=== PATIENT | female | born 1960 | race African-American/Black ===

== ENCOUNTER 2016-12-22 05:04 | Day surgery (SDC) | payer BC ==
[~2016-12-22 05:04] MED LIST: ADVIL PO; ALEVE220 MG PO; KLOR-CON M2020 MEQ PO; LEXAPRO10 PO; MOBIC15 MG PO; NEUR100 PO; NORCO1 TA2 PO; NORV5 PO; PRAVACHOL40 MG PO; PRILOSEC40 MG PO; SOMATAB PO; TRAZ50 PO; ULTRAM50 PO; VERELANPM1 PO; VERELANPM2 PO
[2017-01-12] MEDS ORDERED: LINZESS 145 M145 MCG PO (10:46)
== END 2016-12-22 08:48 | disposition home or self-care (01) ==
LOC: SDC 05:04
PROVIDERS: Orthopaedic Surgery
PROC: B01BZZZ Fluoroscopy of Spinal Cord (ICD-10-PCS; 2016-12-22)
PROC: 3E0R3BZ Introduction of Anesthetic Agent into Spinal Canal, Percutaneous Approach (ICD-10-PCS; principal; 2016-12-22 07:45)
DX: M54.5 Low back pain (principal); M54.16 Radiculopathy, lumbar region; G43.909 Migraine, unspecified, not intractable, without status migrainosus; I10 Essential (primary) hypertension; M19.90 Unspecified osteoarthritis, unspecified site; F41.9 Anxiety disorder, unspecified; Z98.51 Tubal ligation status; Z87.891 Personal history of nicotine dependence; Z98.890 Other specified postprocedural states
CPT/HCPCS: J1040; J2250; J3010; Q9967

== ENCOUNTER 2017-01-17 06:30 | Day surgery (SDC) | payer BC ==
[~2017-01-17 06:30] MED LIST changes: +LINZESS 145 M145 MCG PO
== END 2017-01-17 10:00 | disposition home or self-care (01) ==
LOC: SDC 06:30
PROVIDERS: Orthopaedic Surgery
PROC: B01BZZZ Fluoroscopy of Spinal Cord (ICD-10-PCS; 2017-01-17)
PROC: 3E0R3BZ Introduction of Anesthetic Agent into Spinal Canal, Percutaneous Approach (ICD-10-PCS; principal; 2017-01-17 07:30)
DX: M54.16 Radiculopathy, lumbar region (principal); G43.909 Migraine, unspecified, not intractable, without status migrainosus; I10 Essential (primary) hypertension; M19.90 Unspecified osteoarthritis, unspecified site; F41.9 Anxiety disorder, unspecified; Z79.899 Other long term (current) drug therapy; Z88.8 Allergy status to other drugs, medicaments and biological substances; Z88.5 Allergy status to narcotic agent; Z87.891 Personal history of nicotine dependence; Z98.51 Tubal ligation status; Z98.890 Other specified postprocedural states
CPT/HCPCS: J1040; J2250; J3010; Q9967